=== PATIENT | female | born 1930 | race Caucasian/White ===

== ENCOUNTER 2019-03-07 14:19 | Observation (INO) ==
[2019-03-07] MEDS ORDERED: Naloxone 0.4 MG/ML INJ IVP PRN ×2 (21:40→21:58)
[2019-03-07] MEDS ORDERED: 0.9 % Sodium Chloride 1,000 ML IVC SCH (21:45)
--- NOTE | 2019-03-07 22:54 | Internal Med History&Physical ---
Date of Encounter: 03/07/19 Time of Encounter: 22:27 Internal Medicine - H&P: HPI Chief complaint: Abdominal pain History of present illness: Ms. Esparza is a 88 year old female with a past medical history of insulin- dependent diabetes mellitus, CKD, hypertension, CVA who was initially presented to [facility] on February 25 for evaluation of persistent abdominal pain. CT of the abdomen/pelvis at the time was suspicious for a possible fistula between the sigmoid colon and uterus due to findings of air within the endometrial, endocervical, and endovaginal canals. Patient was subsequently transferred to [facility] for further evaluation which reportedly did not reveal an obvious fistulous tract. She was noted to have fecal impaction treated with enemas and told she m ay need surgical disimpaction. She was subsequently discharged with outpatient follow-up. Patient followed up with her PCP on the . She continued to report of constipation and was subsequently referred to surgery. Due to surgery being unavailable for immediate consultation, patient was subsequently advised to go to the emergency department at [facility]. Initial workup including imaging and labs were unremarkable. Patient was seen by surgery who recommended transfer to [place] for further evaluation with surgery and AGRONOMY LOCATION MANAGER on board. On my assessment patient was afebrile, hemodynamically stable. No reports of abdominal pain. Still reporting absence of a significant bowel movement in some time. She reports that she is passing gas. No reports of unintentional weight loss, melena or hematochezia. Denies any vaginal discharge. Family history noncontributory. Patient does not smoke or consume alcohol. Abdominal exam benign. We will consult AGRONOMY LOCATION MANAGER/surgery for further evaluation. Internal Medicine - H&P: Meds Acetaminophen [Tylenol] 650 mg PO Q6HR PRN 03/08/19 [History] Aspirin Enteric Coated [Aspirin EC] 81 mg PO DAILY 03/08/19 [History] Atenolol [Tenormin] 25 mg PO DAILY 03/08/19 [History] Atorvastatin Calcium [Lipitor] 40 mg PO HS 03/08/19 [History] Calcium Carbonate [Calcium] 600 mg PO DAILY 03/08/19 [History] Cranberry Conc/Ascorbic Acid [Cranberry 12,600 mg Softgel] 2 tab PO BID 03/08/19 [History] Docusate Sodium [Dok] 100 mg PO BID 03/08/19 [History] Ergocalciferol (VITAMIN D2) [Vitamin D] 400 unit PO DAILY 03/08/19 [History] Furosemide [Lasix] 20 mg PO QMWF 03/08/19 [History] Insulin Glargine,Hum.rec.anlog [Lantus Solostar] 55 unit SQ HS 03/08/19 [History] Multivit-Min/Iron Fum/Folic AC [Hgkiy-Nfbyshr-Fgudkacm Tablet] 1 tab PO DAILY 03/08/19 [History] Pantoprazole Sodium [Protonix] 40 mg PO DAILY 03/08/19 [History] Polyethylene Glycol 3350 [MiraLAX] 17 gm PO DAILY 03/08/19 [History] Saxagliptin HCl [Onglyza] 5 mg PO DAILY 03/08/19 [History] hydroCHLOROthiazide [Hydrochlorothiazide] 25 mg PO DAILY 03/08/19 [History] Allergy/AdvReac Type Severity Reaction Status Date / Time No Known Allergies Allergy Verified 03/07/19 23:24 All Systems PM: A 10-system review of systems was performed and is negative for pertinent findings except as documented above in the HPI. - Constitutional Constitutional: no chills, no fever(s), no night sweats - EENT Eyes: no change in vision, no discharge, no pain, no photophobia Ears: no ear discharge, no ear pain, no tinnitus Nose, mouth and throat: no dysphagia, no nasal discharge, no neck pain, no sore throat - Cardiovascular Cardiovascular ROS IM: no chest pain, no diaphoresis, no dyspnea, no lightheadedness, no palpitations, no syncope - Respiratory Respiratory: no cough, no dyspnea, no wheezing, no excessive phlegm production - Gastrointestinal Gastrointestinal: no abdominal pain, no diarrhea, no hematemesis, no hematochezia, no melena, no nausea, no vomiting - Genitourinary Genitourinary: no change in urinary stream, no dysuria, no flank pain, no hematuria - Musculoskeletal Musculoskeletal ROS IM: no numbness, no tingling - Integumentary Integumentary IM: no rash, no unusual bruising - Neurological Neurological ROS: no confusion, no convulsions, no focal weakness, no numbness, no tingling, no tremor(s) - Hematologic/Lymphatic Hematologic/Lymphatic: no easy bruising - Constitutional Vitals: Temp Pulse Resp BP Pulse Ox 98.7 F 56 15 161/69 94 03/07/19 19:28 03/07/19 19:28 03/07/19 19:28 03/07/19 19:28 03/07/19 19:28 Exam: General: Alert and oriented 3 lying in bed in no acute distress Skin:Normal color, no rash, no lesions. HEENT:EOM, pupils equal, round and reactive. Cardiovascular:Normal S1 & S2, no rubs, murmurs or gallops. No JVD. Pulse regular. Lungs:Normal breath sounds, no wheezes or crackles. Abdomen:Soft, mildly distended, non-tender, no rigidity. Hypoactive bowel sounds Extremities:No deformity, no edema or tenderness, no joint swelling or clubbing. Neurological:Normal cognition and motor skills. Pulses:Carotid and radial pulses normal +2. Rest of the physical exam is non contributory Internal Med - H&P Results - Labs CBC & Chem 7: 03/08/19 03:57 03/08/19 03:57 - Assessment and Plan (1) Abdominal pain Current Visit: Yes Status: Acute Assessment and plan: Recent history of persistent Abdominal pain. CT of the abdomen/pelvis 02/25/2019 suspicious for a possible fistula between the sigmoid colon and uterus due to findings of air within the endometrial, endocervical, and endovaginal canals. Workup at [facility] did not reveal an obvious fistulous tract. She was noted to have fecal impaction treated with enemas and stool softeners. Transferred to [place] for further AGRONOMY LOCATION MANAGER and surgical evaluation. Currently denies any abdominal pain but reports persistent absence of normal bowel movement for some time. Abdominal exam benign. Laboratory workup reviewed and unremarkable. -Continue pain control as needed. -Supportive fluids -We will keep patient NPO for now -Consult to surgery/AGRONOMY LOCATION MANAGER Qualifiers: Abdominal location: unspecified location Qualified Code(s): R10.9 - Unspecified abdominal pain (2) Type 2 diabetes mellitus Current Visit: Yes Status: Chronic Assessment and plan: Blood glucose checks. Sliding scale insulin. Qualifiers: Diabetes mellitus longterm insulin use: with longterm use Diabetes mellitus complication status: without complication Qualified Code(s): E11.9 - Type 2 diabetes mellitus without complications; Z79.4 - manager terminal (current) use of insulin (3) Chronic kidney disease Current Visit: Yes Status: Acute Assessment and plan: History of chronic kidney disease. -Patient's creatinine -We will continue to monitor. Qualifiers: Chronic kidney disease stage: unspecified stage Qualified Code(s): N18.9 - Chronic kidney disease, unspecified (4) Hypertension Current Visit: Yes Status: Acute Assessment and plan: Blood pressure stable. Resume home antihypertensives. Qualifiers: Hypertension type: essential hypertension Qualified Code(s): I10 - Essential (primary) hypertension (5) DVT prophylaxis Current Visit: Yes Status: Acute Assessment and plan: Subcutaneous heparin - Time Spent With Patient Total time spent is greater than 50% in coordination of care (as documented) at patient's floor/unit and/or counseling patient:
[2019-03-07] MEDS ORDERED: D5% in Water 1,000 ML IVC PRN (23:09)
[2019-03-07] MEDS ORDERED: *HR* Dextrose 50 % in Water (Syg) 50 ML SYRINGE IVP PRN (23:09)
[2019-03-07] MEDS ORDERED: Dextrose Gel 15 GM/37.5 ML TUBE PO PRN ×2 (23:09)
[2019-03-07] MEDS ORDERED: *HR* Heparin 5,000 UNIT/ML VIAL IVP PRN ×2 (23:36)
[2019-03-07] MEDS ORDERED: Heparin 25,000 UNIT/250 ML D5W 25,000 UNIT/250 ML IV.SOLN IVC SCH (23:45)
[2019-03-08] MEDS: Insulin LISPRO 300 UNITS/3 ML VIAL SQ SCH ×4 (00:09→18:01)
[2019-03-08] MEDS: Ketorolac 15 MG/ML VIAL IVP SCH ×3 (00:20→13:23)
[2019-03-08 04:25] LABS: Basophils # 0.1 K/mcL (0.0-0.2); Basophils % 0.5 %; Eosinophils # 0.1 K/mcL (0.0-0.6); Eosinophils % 1.1 %; Hematocrit 33.7 % (35.3-44.9); Immature Granulocytes % 0.3 % (0-4); Lymphocytes # 2.8 K/mcL (0.6-4.6); Lymphocytes % 22.1 %; Mean Corpuscular HGB Conc 32.6 g/dL (31.6-35.5); Mean Corpuscular Hemoglobin 31.6 pg (28.0-33.3); Mean Corpuscular Volume 96.8 fL (83.0-100.0); Mean Platelet Volume 11.1 fL (9.4-12.4); Monocytes # 1.4 K/mcL (0.0-1.3); Monocytes % 10.9 %; Neutrophils # 8.4 K/mcL (1.6-8.9); Platelet Count 225 K/mcL (140-400); Red Blood Count 3.48 M/mcL (3.82-4.97); Segmented Neutrophils % 65.1 %; White Blood Count 12.8 K/mcL (4.3-11.1)
[2019-03-08 04:29] LABS: INR 1.1; Prothrombin Time 12.1 Seconds (9.4-12.1)
[2019-03-08 04:32] LABS: Activated Partial Thrombo Time 30.9 Seconds (26.0-36.0)
[2019-03-08 04:43] LABS: Albumin 3.2 g/dL (3.5-5.7); Albumin/Globulin Ratio 1.2 (1.1-2.2); Bilirubin,Total 0.7 mg/dL (0.3-1.0); Calcium 9.3 mg/dL (8.6-10.3); Globulin 2.7 g/dL (2.4-3.5); Magnesium 1.7 mg/dL (1.6-2.6); Potassium 3.7 mEq/L (3.5-5.1); Total Protein 5.9 g/dL (6.4-8.9)
[2019-03-08] MEDS: *HR* Heparin 5,000 UNIT/ML VIAL SQ SCH ×3 (06:11→21:51)
--- NOTE | 2019-03-08 08:34 | Internal Med Progress Note ---
<Sukhjinder Clemons - Last Filed: 03/08/19 15:30> Hospitalist Progress Note - Encounter Date of Encounter: 03/08/19 Time of Encounter: 08:34 - Subjective Interval History: Pt reports progressive constipation over the last week. CT imaging from [facility] was suspicious for possible sigmoid-uterine fistula, which was later ruled out at [facility]. Treated at [facility] for fecal impaction with enemas that did not resolve her symptoms. Reports that her last BM was over 3 days ago. Denies having significant pain, although she is uncomfortable due to constipation. She was transfered to [place] for further eval with surgery and PUBLIC SERVICE REPRESENTATIVE. Denies cp, sob, fever, chills. - Exam Vitals: Temp Pulse Resp BP Pulse Ox 98.4 F 66 16 144/68 95 03/08/19 06:25 03/08/19 06:25 03/08/19 06:25 03/08/19 06:25 03/08/19 06:25 Exam: General: Alert and oriented 3 lying in bed in no acute distress Skin: Normal color, no rash, no lesions. HEENT: EOMI, pupils equal, round and reactive. Cardiovascular: Normal S1 & S2, no rubs, murmurs or gallops. No JVD. Pulse regul ar. Lungs: Normal breath sounds, no wheezes or crackles. Abdomen:Soft, mild distention, non-tender, no rigidity, no evidence of acute abdomen. normoactive bowel sounds Extremities: No deformity, no edema or tenderness, no joint swelling or clubbing. Neurological: Some mild weakness of the right wrist and arm with wrist pain. Pt states that she has hx of arthritis. No focal deficits, CN grossly intact. - Assessment and Plan (1) Fecal impaction Current Visit: Yes Status: Acute Assessment and Plan: Pt was seen and treated at [facility] for fecal impaction. Enemas and disempaction have not improved symptoms. Pt reporting now BM for more than 3 days. Surgery consulted. - Plan is colonoscopy prep today with plans for colonoscopy tomorrow per surgery recommendations. - Maintain hydration, IVF if necessary. - Monitor electrolytes. (2) Type 2 diabetes mellitus Current Visit: Yes Status: Chronic Assessment and Plan: Pt has hx of uncontrolled IDDM. She reports no symptoms at this time. - Continue Humalog sliding scale. - Monitor for hypoglycemia. - Continue clear liquid diet. (3) Chronic kidney disease Current Visit: Yes Status: Acute Assessment and Plan: Pt has a hx of CKD. BUN 24, Cr 1.12 at admission. Pt reports mild discomfort from constipation, but is comfortable and not in pain. We will decrease her Toradol Q6 to PRN and continue to monitor. - Maintain hydration. - Avoid nephrotoxic drugs. - Monitor renal function daily. (4) Hypertension Current Visit: Yes Status: Acute Assessment and Plan: BP is slightly elevated today. 144-161/68 over the last two hours. - Continue home bp medications. (5) DVT prophylaxis Current Visit: Yes Status: Acute Assessment and Plan: Heparin SQ for DVT ppx. - Time Spent with Patient Total time spent is greater than 50% in coordination of care (as documented) at patient's floor/unit and/or counseling patient: Internal Medicine: Result - Labs CBC & Chem 7: 03/08/19 03:57 03/08/19 03:57 Labs: Short CBC 03/08/19 Range/Units 03:57 WBC 12.8 H (4.3-11.1) K/mcL Hgb 11.0 L (11.5-15.4) g/dL Hct 33.7 L (35.3-44.9) % Plt Count 225 (140-400) K/mcL Neutrophils # 8.4 (1.6-8.9) K/mcL BMP 03/08/19 03:57 Sodium 143 Potassium 3.7 Chloride 105 Carbon Dioxide 28 BUN 24 H Creatinine 1.12 Glucose 92 Calcium 9.3 Liver Function 03/08/19 Range/Units 03:57 Total Bilirubin 0.7 (0.3-1.0) mg/dL AST 16 (13-39) Units/L ALT 10 (7-52) Units/L Alkaline Phosphatase 56 (34-104) Units/L Albumin 3.2 L (3.5-5.7) g/dL - ABG Interpretation ABG results: PT/INR, D-dimer PT 12.1 Seconds (9.4-12.1) 03/08/19 03:57 Consult Discharge Plan - Plan Referrals: Candice Black MD [Primary Care Provider] - <Pepito Mccabe - Last Filed: 03/08/19 17:41> Hospitalist Progress Note - Encounter Date of Encounter: 03/08/19 - Exam Vitals: Temp Pulse Resp BP Pulse Ox 98.1 F 54 17 158/73 97 03/08/19 14:56 03/08/19 14:56 03/08/19 14:56 03/08/19 14:56 03/08/19 14:56 - Assessment and Plan (1) Abdominal pain Current Visit: Yes Status: Acute (2) DVT prophylaxis Current Visit: Yes Status: Acute (3) Type 2 diabetes mellitus Current Visit: Yes Status: Chronic (4) Chronic kidney disease Current Visit: Yes Status: Acute (5) Hypertension Current Visit: Yes Status: Acute - Time Spent with Patient Total time spent is greater than 50% in coordination of care (as documented) at patient's floor/unit and/or counseling patient: Internal Medicine: Result - Labs CBC & Chem 7: 03/08/19 03:57 03/08/19 03:57 Labs: Short CBC 03/08/19 Range/Units 03:57 WBC 12.8 H (4.3-11.1) K/mcL Hgb 11.0 L (11.5-15.4) g/dL Hct 33.7 L (35.3-44.9) % Plt Count 225 (140-400) K/mcL Neutrophils # 8.4 (1.6-8.9) K/mcL BMP 03/08/19 03:57 Sodium 143 Potassium 3.7 Chloride 105 Carbon Dioxide 28 BUN 24 H Creatinine 1.12 Glucose 92 Calcium 9.3 Liver Function 03/08/19 Range/Units 03:57 Total Bilirubin 0.7 (0.3-1.0) mg/dL AST 16 (13-39) Units/L ALT 10 (7-52) Units/L Alkaline Phosphatase 56 (34-104) Units/L Albumin 3.2 L (3.5-5.7) g/dL - ABG Interpretation ABG results: PT/INR, D-dimer PT 12.1 Seconds (9.4-12.1) 03/08/19 03:57 - Impressions Impressions Head CT 03/08/19 11:57 IMPRESSION: No acute intracranial abnormality. Senescent changes. 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 D/ / Robert Leblanc / Robert Leblanc Interpreting Provider: Robert Leblanc - Attending Attestation I examined this patient and my medical decision-making was reviewed with the Resident Physician on 03/08/19. I agree with the documented findings, disposition and treatment plan as described except to the extent set forth below. Ms Esparza is currently hospitalized for abdominal pain. She remains moderate to high risk due to potential for worsening clinical status. Ms Esparza is resting at this time. No fever or chills. To have colonoscopy tomorrow. Exam Alert. Comfortable. Mucus membranes dry. NC. EOMI. Neck supple. Heart reg No wheeze Abd soft and nontender. No edema. Moves all extremities. No rash. I/P 1. Abd pain 2. Constipation Colonoscopy tomorrow. __ <Sukhjinder Clemons - Last Filed: 03/08/19 15:30> (2) Type 2 diabetes mellitus Qualifiers: Diabetes mellitus custodial insulin use: with joint terminal attack controller use Diabetes mellitus complication status: without complication Qualified Code(s): E11.9 - Type 2 diabetes mellitus without complications; Z79.4 - senior living (current) use of in sulin (4) Hypertension Qualifiers: Hypertension type: essential hypertension Qualified Code(s): I10 - Essential (primary) hypertension <Pepito Mccabe - Last Filed: 03/08/19 17:41> (3) Type 2 diabetes mellitus Qualifiers: Diabetes mellitus custodial insulin use: with custodial use Diabetes mellitus complication status: without complication Qualified Code(s): E11.9 - Type 2 diabetes mellitus without complications; Z79.4 - senior living (current) use of insulin (5) Hypertension Qualifiers: Hypertension type: essential hypertension Qualified Code(s): I10 - Essential (primary) hypertension
--- NOTE | 2019-03-08 10:10 | AcuteCare Surgery Consult Note ---
Date of Encounter: 03/08/19 Time of Encounter: 10:00 Assessment and Plan (1) Rectovaginal fistula Current Visit: Yes Status: Acute Possible. Recommend evaluation with colonoscopy. Indications for colonoscopy are discussed in detail. Procedure, risk and benefits of colonscopy are discussed. Pt understands risks and possible complications. Possible complications include but, are not limited to bleeding, infection or perforation. Pt understands and wishes to proceed as recommended. Consent is obtained. Inpatient colonoscopy is scheduled. Prep today and scope tomorrow. (2) Hypertension Current Visit: Yes Status: Acute Qualifiers: Hypertension type: essential hypertension Qualified Code(s): I10 - [facility]ia l (primary) hypertension (3) Type 2 diabetes mellitus Current Visit: Yes Status: Chronic Qualifiers: Diabetes mellitus custodial insulin use: with custodial use Diabetes mellitus complication status: without complication Qualified Code(s): E11.9 - Type 2 diabetes mellitus without complications; Z79.4 - penitentiary (current) use of insulin History of Present Illness Consult date: 03/08/19 Reason for consult: other (abnormal abdomen/pelvis CT finding c/w rectovaginal fistula) Requesting physician: Armaan Hardwick History of present illness: This 88 y/io female presents with concerning findings on CT. She is found to have air in uterus and vaginal canal. She complains of chonic constipation stating that she hasn't has a good BM in a long while. She denies vaginal discharge or gas. She denies abdominal pain. She denies rectal bleeding. She denies urinaary symptoms. She denies fever. Past Med Surg Social Fam HX - Past Medical History Medical history: arthritis, CVA, diabetes, hypertension, valvular heart disease - Past Surgical History Surgical History: appendectomy, cholecystectomy, thyroidectomy - Social History Smoking Status: Never smoker Smokeless Tobacco Status: No Alcohol use: none Drug use: none Medications and Allergies Acetaminophen [Tylenol] 650 mg PO Q6HR PRN 03/08/19 [History] Aspirin Enteric Coated [Aspirin EC] 81 mg PO DAILY 03/08/19 [History] Atenolol [Tenormin] 25 mg PO DAILY 03/08/19 [History] Atorvastatin Calcium [Lipitor] 80 mg PO HS 03/08/19 [History] Calcium Carbonate [Calcium] 600 mg PO DAILY 03/08/19 [History] Cranberry Conc/Ascorbic Acid [Cranberry 12,600 mg Softgel] 2 tab PO BID 03/08/19 [History] Docusate Sodium [Dok] 100 mg PO BID 03/08/19 [History] Ergocalciferol (VITAMIN D2) [Vitamin D] 400 unit PO DAILY 03/08/19 [History] Furosemide [Lasix] 20 mg PO QMWF 03/08/19 [History] Lantus Solostar 55 unit SQ HS 03/08/19 [History] Multivit-Min/Iron Fum/Folic AC [Hssga-Xdceyhc-Pjyoigts Tablet] 1 tab PO DAILY 03/08/19 [History] Pantoprazole Sodium [Protonix] 40 mg PO DAILY 03/08/19 [History] Polyethylene Glycol 3350 [MiraLAX] 17 gm PO DAILY 03/08/19 [History] Saxagliptin HCl [Onglyza] 5 mg PO DAILY 03/08/19 [History] hydroCHLOROthiazide [Hydrochlorothiazide] 25 mg PO DAILY 03/08/19 [History] Allergy/AdvReac Type Severity Reaction Status Date / Time No Known Allergies Allergy Verified 03/07/19 23:24 Review of Systems All systems PM: The remainder of the systems were reviewed and are negative - Constitutional no anorexia, no chills, no fatigue, no fever(s), no night sweats, no weight loss - EENT Nose, mouth and throat: no dry mouth, no dysphagia, no nasal congestion, no nasal discharge, no sinus pain, no sinus pressure, no sore throat - Cardiovascular no chest pain, no diaphoresis, no dyspnea, no edema - Respiratory no cough, no dyspnea, no wheezing - Gastrointestinal constipation, no abdominal pain, no bloating, no diarrhea, no hematemesis, no hematochezia, no melena, no nausea, no vomiting - Genitourinary Genitourinary: no dysuria, no flank pain, no urinary frequency - Musculoskeletal no back pain, no joint swelling, no limited range of motion, no neck pain - Integumentary no dry skin, no pruritus, no rash, no wounds, no jaundice - Neurological no confusion, no dizziness, no focal weakness, no headache(s), no weakness - Psychiatric no anxiety, no depression - Endocrine no fatigue - Hematologic/Lymphatic no easy bleeding, no easy bruising General Surgery Exam Initial Vital Signs Temp Pulse Resp BP Pulse Ox 98.7 F 56 15 161/69 94 03/07/19 19:28 03/07/19 19:28 03/07/19 19:28 03/07/19 19:28 03/07/19 19:28 - General physical appearance no distress, no pain. negative: jaundice - Eyes PERRL, normal ocular movement. negative: icteric - ENT no congestion, dry mucosa. negative: nasal discharge - Neck no masses, trachea midline, no lymphadectomy, no venous distension - Respiratory normal respiratory effort, clear to auscultation - Cardiovascular Cardiovascular exam: Present: RRR. Absent: JVD - Abdomen Abdomen general surgery: Present: bowel sounds present, soft, non tender. Absen t: distended, guarding, rebound - Genitourinary Present: normal external genitalia - Rectum Rectum: Present: normal sphincter tone, no bleeding - Integumentary Integumentary general surgery: Present: warm and dry - Neurologic Present: CN 2-12 grossly intact, normal coordination - Musculoskeletal Present: normal posture - Psychiatric Psychiatric general surgery: Present: A&Ox3, appropriate Exam Initial Vital Signs Temp Pulse Resp BP Pulse Ox 98.7 F 56 15 161/69 94 03/07/19 19:28 03/07/19 19:28 03/07/19 19:28 03/07/19 19:28 03/07/19 19:28 Results - Labs 03/08/19 03:57 03/08/19 03:57 Abnormal lab results WBC 12.8 K/mcL (4.3-11.1) H 03/08/19 03:57 RBC 3.48 M/mcL (3.82-4.97) L 03/08/19 03:57 Hgb 11.0 g/dL (11.5-15.4) L 03/08/19 03:57 Hct 33.7 % (35.3-44.9) L 03/08/19 03:57 Monocytes # 1.4 K/mcL (0.0-1.3) H 03/08/19 03:57 BUN 24 mg/dL (8-23) H 03/08/19 03:57 Est GFR ( Amer) 56 (> 60) L 03/08/19 03:57 Est GFR (Non-Af Amer) 46 (> 60) L 03/08/19 03:57 POC Glucose 103 mg/dL (70-99) H 03/07/19 21:27 Serum Total Protein 5.9 g/dL (6.4-8.9) L 03/08/19 03:57 Albumin 3.2 g/dL (3.5-5.7) L 03/08/19 03:57 Diabetes panel 03/08/19 Range/Units 03:57 Sodium 143 (136-145) mEq/L Potassium 3.7 (3.5-5.1) mEq/L Chloride 105 (98-107) mEq/L Carbon Dioxide 28 (23-29) mEq/L BUN 24 H (8-23) mg/dL Creatinine 1.12 (0.60-1.20) mg/dL Glucose 92 (70-105) mg/dL Calcium 9.3 (8.6-10.3) mg/dL AST 16 (13-39) Units/L ALT 10 (7-52) Units/L Alkaline Phosphatase 56 (34-104) Units/L Albumin 3.2 L (3.5-5.7) g/dL Calcium panel 03/08/19 Range/Units 03:57 Calcium 9.3 (8.6-10.3) mg/dL Albumin 3.2 L (3.5-5.7) g/dL Pituitary panel 03/08/19 Range/Units 03:57 Sodium 143 (136-145) mEq/L Potassium 3.7 (3.5-5.1) mEq/L Chloride 105 (98-107) mEq/L Carbon Dioxide 28 (23-29) mEq/L BUN 24 H (8-23) mg/dL Creatinine 1.12 (0.60-1.20) mg/dL Glucose 92 (70-105) mg/dL Calcium 9.3 (8.6-10.3) mg/dL Adrenal panel 03/08/19 Range/Units 03:57 Sodium 143 (136-145) mEq/L Potassium 3.7 (3.5-5.1) mEq/L Chloride 105 (98-107) mEq/L Carbon Dioxide 28 (23-29) mEq/L BUN 24 H (8-23) mg/dL Creatinine 1.12 (0.60-1.20) mg/dL Glucose 92 (70-105) mg/dL Calcium 9.3 (8.6-10.3) mg/dL Total Bilirubin 0.7 (0.3-1.0) mg/dL AST 16 (13-39) Units/L ALT 10 (7-52) Units/L Alkaline Phosphatase 56 (34-104) Units/L Albumin 3.2 L (3.5-5.7) g/dL All other labs normal. - Imaging CT scan - abdomen: report reviewed (air in uterus and vaginal canal suggestive of rectovaginal fistula) CT scan - pelvis: report reviewed Consult Discharge Plan - Plan Referrals: Candice Black MD [Primary Care Provider] -
[2019-03-08] MEDS ORDERED: Acetaminophen 325 MG TABLET PO PRN (13:54)
[2019-03-08] MEDS ORDERED: Ketorolac 15 MG/ML VIAL IVP PRN (15:30)
[2019-03-08] MEDS: hydroCHLOROthiazide 25 MG TABLET PO SCH (16:18)
[2019-03-09] MEDS: Insulin LISPRO 300 UNITS/3 ML VIAL SQ SCH ×3 (00:09→12:00)
[2019-03-09] MEDS: *HR* Heparin 5,000 UNIT/ML VIAL SQ SCH ×2 (04:27→16:39)
--- NOTE | 2019-03-09 07:40 | Internal Med Progress Note ---
<KaciSukhjinder Ayden - Last Filed: 03/09/19 12:10> Hospitalist Progress Note - Encounter Date of Encounter: 03/09/19 Time of Encounter: 07:39 - Subjective Interval History: Pt awake, comfortable in bed. States that she has no pain. Reports large BM yesterday after bowel prep for colonoscopy. We discussed colonoscopy procedure this morning. Pt had no questions or concerns at this time. - Exam Vitals: Temp Pulse Resp BP Pulse Ox 98.4 F 67 14 146/70 94 03/09/19 03:02 03/09/19 03:02 03/09/19 03:02 03/09/19 03:02 03/09/19 03:02 Exam: General: Alert and oriented 3 lying in bed in no acute distress Skin: Normal color, no rash, no lesions. HEENT: EOMI, PERRL. Cardiovascular: Normal S1 & S2, no rubs, murmurs or gallops. No JVD. Lungs: Normal breath sounds, no wheezes or crackles. Abdomen: Soft, mildly distended, non-tender, no rigidity. BS normoactive throughout. Extremities: No deformity, edema or tenderness, no joint swelling or clubbing. Neurological: No focal deficits, CN grossly intact. Pulses: UE/LE pulses +2 and equal bilaterally. 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 Bowel prep for colonoscopy was performed yesterday. Pt reported BM and improvement in symptoms. - Colonoscopy today. - Maintain hydration, IVF if necessary. - Monitor electrolytes. (2) Type 2 diabetes mellitus Current Visit: Yes Status: Chronic Assessment and Plan: Hx of uncontrolled IDDM. Asymptomatic. BS elevated from 103 to 245 today. - Continue humalog sliding scale. - Accucheck Q6H. - NPO until colonoscopy. (3) Chronic kidney disease Current Visit: Yes Status: Acute Assessment and Plan: BUN down from 24 to 19, Cr down from 1.12 to 0.94 today. Potassium 3.6, asymptomatic. Urinating appropriately. - 20 meq KCl once given. - NPO until colonoscopy. - Avoid nephrotoxic drugs. - Monitor renal function daily. (4) Hypertension Current Visit: Yes Status: Acute Assessment and Plan: BP improving. 154/73 today. Pt is stable, asymptomatic. - Continue home HCTZ and Atenolol. (5) DVT prophylaxis Current Visit: Yes Status: Acute Assessment and Plan: SQ heparin. - Time Spent with Patient Total time spent is greater than 50% in coordination of care (as documented) at patient's floor/unit and/or counseling patient: Internal Medicine: Result - Labs CBC & Chem 7: 03/09/19 09:27 03/09/19 09:27 - ABG Interpretation ABG results: PT/INR, D-dimer PT 12.1 Seconds (9.4-12.1) 03/08/19 03:57 - Impressions Impressions Head CT 03/08/19 11:57 IMPRESSION: No acute intracranial abnormality. Senescent changes. 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 D/ / Robert Leblanc / Robert Leblanc Interpreting Provider: Robert Leblanc Consult Discharge Plan - Plan Instructions: Diverticulosis (DC) Referrals: Candice Black MD [Primary Care Provider] - <Pepito Mccabe - Last Filed: 03/09/19 17:44> Hospitalist Progress Note - Encounter Date of Encounter: 03/09/19 - Exam Vitals: Temp Pulse Resp BP Pulse Ox 98.9 F 59 15 138/70 94 03/09/19 14:49 03/09/19 14:49 03/09/19 14:49 03/09/19 14:49 03/09/19 14:49 - Assessment and Plan (1) Fecal impaction Current Visit: Yes Status: Acute (2) Abdominal pain Current Visit: Yes Status: Acute (3) Type 2 diabetes mellitus Current Visit: Yes Status: Chronic (4) Hypertension Current Visit: Yes Status: Chronic - Time Spent with Patient Total time spent is greater than 50% in coordination of care (as documented) at patient's floor/unit and/or counseling patient: Internal Medicine: Result - Labs CBC & Chem 7: 03/09/19 09:27 03/09/19 09:27 Labs: Short CBC 03/09/19 Range/Units 09:27 WBC 11.1 (4.3-11.1) K/mcL Hgb 11.3 L (11.5-15.4) g/dL Hct 34.0 L (35.3-44.9) % Plt Count 225 (140-400) K/mcL Neutrophils # 7.3 (1.6-8.9) K/mcL BMP 03/09/19 09:27 Sodium 141 Potassium 3.6 Chloride 104 Carbon Dioxide 26 BUN 19 Creatinine 0.94 Glucose 158 H Calcium 9.0 - ABG Interpretation ABG results: PT/INR, D-dimer PT 12.1 Seconds (9.4-12.1) 03/08/19 03:57 - Attending Attestation See discharge summary of this date. <Sukhjinder Clemons - Last Filed: 03/09/19 12:10> (2) Type 2 diabetes mellitus Qualifiers: Diabetes mellitus snf insulin use: with director call center sales use Diabetes mellitus complication status: without complication Qualified Code(s): E11.9 - Type 2 diabetes mellitus without complications; Z79.4 - penitentiary (current) use of insulin (3) Chronic kidney disease Qualifiers: Chronic kidney disease stage: unspecified stage Qualified Code(s): N18.9 - Chronic kidney disease, unspecified (4) Hypertension Qualifiers: Hypertension type: essential hypertension Qualified Code(s): I10 - Essential (primary) hypertension <Pepito Mccabe - Last Filed: 03/09/19 17:44> (2) Abdominal pain Qualifiers: Abdominal location: left lower quadrant Qualified Code(s): R10.32 - Left lower quadrant pain (3) Type 2 diabetes mellitus Qualifiers: Diabetes mellitus director call center sales insulin use: with director call center sales use Diabetes mellitus complication status: without complication Qualified Code(s): E11.9 - Type 2 di abetes mellitus without complications; Z79.4 - penitentiary (current) use of insulin (4) Hypertension Qualifiers: Hypertension type: essential hypertension Qualified Code(s): I10 - Essential (primary) hypertension
[2019-03-09] MEDS ORDERED: Aspirin Enteric Coated 81 MG Tablet PO SCH (09:00)
[2019-03-09 09:40] LABS: Basophils # 0.1 K/mcL (0.0-0.2); Basophils % 0.5 %; Eosinophils # 0.1 K/mcL (0.0-0.6); Eosinophils % 0.9 %; Hemoglobin 11.3 g/dL (11.5-15.4); Immature Granulocytes % 0.3 % (0-4); Lymphocytes # 2.5 K/mcL (0.6-4.6); Lymphocytes % 22.3 %; Mean Corpuscular HGB Conc 33.2 g/dL (31.6-35.5); Mean Corpuscular Hemoglobin 31.5 pg (28.0-33.3); Mean Corpuscular Volume 94.7 fL (83.0-100.0); Mean Platelet Volume 10.9 fL (9.4-12.4); Monocytes # 1.1 K/mcL (0.0-1.3); Monocytes % 9.8 %; Neutrophils # 7.3 K/mcL (1.6-8.9); Platelet Count 225 K/mcL (140-400); Red Blood Count 3.59 M/mcL (3.82-4.97); Red Cell Distribution Width 11.9 % (11.5-14.5); Segmented Neutrophils % 66.2 %; White Blood Count 11.1 K/mcL (4.3-11.1)
[2019-03-09] MEDS: hydroCHLOROthiazide 25 MG TABLET PO SCH (09:45)
[2019-03-09 10:03] LABS: BUN/Creatinine Ratio 20 (6-26); Blood Urea Nitrogen 19 mg/dL (8-23); Carbon Dioxide 26 mEq/L (23-29); Chloride 104 mEq/L (98-107); Glucose 158 mg/dL (70-105); Osmolality,Calculated 298 (280-300); Potassium 3.6 mEq/L (3.5-5.1); Sodium 141 mEq/L (136-145); eGFR For African Americans > 60 (> 60); eGFR For Non-African Americans 56 (> 60)
[2019-03-09] MEDS ORDERED: *HR* FentaNYL (PF) 100 MCG/2 ML VIAL IVP ONE (10:57)
[2019-03-09] MEDS ORDERED: *HR* Midazolam HCl 5 MG/5 ML VIAL IVP ONE ×2 (10:57→12:35)
--- NOTE | 2019-03-09 10:57 | Pre-Sedation Evaluation ---
Pre-sedation evaluation - Pre-sedation checklist Date of procedure: 03/09/19 Procedure: Colonoscopy Recent Vitals: Last Vital Signs Temp 98.8 F 03/09/19 08:03 Pulse 67 03/09/19 08:03 Resp 15 03/09/19 08:03 BP 154/73 03/09/19 08:03 Pulse Ox 95 03/09/19 08:03 H&P (including ROS) documented in medical record: Yes Previous reaction to sedatives/anesthetics: No Dietary Status: NPO after Midnight Dentition: No loose teeth or bridges Possible difficult airway: No ASA Classification *see protocol: CLASS II-Mild systemic disease Plan of Care: Pt appropriate candidate for procedure/moderate/conscious sedation Cardiac Registry (Cardio Only) - Functional Capacity Functional Capacity: >=4 METS without symptoms
[2019-03-09] MEDS ORDERED: Potassium Chloride Elixir 20 MEQ/15 ML UDC PO ONE (11:59)
[2019-03-09] MEDS ORDERED: *HR* FentaNYL (PF) 100 MCG/2 ML VIAL ONE (12:35)
--- NOTE | 2019-03-09 14:29 | Acute Care Surgery Event Note ---
Date of Encounter: 03/09/19 Time of Encounter: 14:00 Pt underwent colonoscopy today for abnormal uterus/vaginal canal on CT. Pt denies any symptoms other than constipation. Colonoscopy reveals normal colon with noncomplicated divertiulosis. There is no sign of acute or chronic inflammation, there is no sign of malignancy, there is no sign of fistula. No surgery is recommended at this time. Regular diet. DC to home when OK with hospitalist. Surgery signing off.
[2019-03-09 14:59] VITALS: BP 138/70
--- NOTE | 2019-03-09 15:07 | Discharge Summary ---
- NOTES TO OUTPATIENT PROVIDER Notes to Outpatient Provider: Pt sent to [facility] due to concern for rectovaginal fistula and constipation with abdominal pain. Had colonoscopy which was negative. To follow as outpatient. Orders not resulted at time of discharge: Pending orders 03/07/19 21:40 Urinalysis reflex Microscopic [URIN] Stat Date of Encounter: 03/09/19 Time of Encounter: 14:45 - Discharge Diagnosis (1) Fecal impaction Priority: Primary Status: Acute (2) Abdominal pain Priority: Secondary Status: Acute Qualifiers: Abdominal location: left lower quadrant Qualified Code(s): R10.32 - Left lower quadrant pain (3) Type 2 diabetes mellitus Priority: Secondary Status: Chronic Qualifiers: Diabetes mellitus buttermaker continuous churn insulin use: with buttermaker continuous churn use Diabetes mellitus complication status: without complication Qualified Code(s): E11.9 - Type 2 diabetes mellitus without complications; Z79.4 - petroleum terminal plant operator (current) use of insulin (4) Hypertension Priority: Secondary Status: Chronic Qualifiers: Hypertension type: essential hypertension Qualified Code(s): I10 - Essential (primary) hypertension Hospital course: Ms. Esparza is a 88 year old female presented to ED with complaints of abdominal pain and constipation. Due to concern for fistula she was sent to [facility]. Ms Esparza was placed in observation. She had evaluation by surgery and underwent colonoscopy. No sign of fistula noted. She had improvement in her symptoms and was afebrile. She is to be discharged home with outpatient follow up. - Time Spent with Patient Total time spent providing and/or coordinating discharge services: 28min - Discharge Medications Prescriptions: Continued Acetaminophen [Tylenol] 650 mg PO Q6HR PRN PRN Reason: Pain Polyethylene Glycol 3350 [MiraLAX] 17 gm PO DAILY Pantoprazole Sodium [Protonix] 40 mg PO DAILY Saxagliptin HCl [Onglyza] 5 mg PO DAILY Multivit-Min/Iron Fum/Folic AC [Tbvws-Hxprslo-Uxspteey Tablet] 1 tab PO DAILY Insulin Glargine,Hum.rec.anlog [Lantus Solostar] 55 unit SQ HS hydroCHLOROthiazide [Hydrochlorothiazide] 25 mg PO DAILY Furosemide [Lasix] 20 mg PO QMWF Docusate Sodium [Dok] 100 mg PO BID Cranberry Conc/Ascorbic Acid [Cranberry 12,600 mg Softgel] 2 tab PO BID Ergocalciferol (VITAMIN D2) [Vitamin D] 400 unit PO DAILY Calcium Carbonate [Calcium] 600 mg PO DAILY Atorvastatin Calcium [Lipitor] 40 mg PO HS Atenolol [Tenormin] 25 mg PO DAILY Aspirin Enteric Coated [Aspirin EC] 81 mg PO DAILY Home Medications: Acetaminophen [Tylenol] 650 mg PO Q6HR PRN 03/08/19 [History] Aspirin Enteric Coated [Aspirin EC] 81 mg PO DAILY 03/08/19 [History] Atenolol [Tenormin] 25 mg PO DAILY 03/08/19 [History] Atorvastatin Calcium [Lipitor] 40 mg PO HS 03/08/19 [History] Calcium Carbonate [Calcium] 600 mg PO DAILY 03/08/19 [History] Cranberry Conc/Ascorbic Acid [Cranberry 12,600 mg Softgel] 2 tab PO BID 03/08/19 [History] Docusate Sodium [Dok] 100 mg PO BID 03/08/19 [History] Ergocalciferol (VITAMIN D2) [Vitamin D] 400 unit PO DAILY 03/08/19 [History] Furosemide [Lasix] 20 mg PO QMWF 03/08/19 [History] Insulin Glargine,Hum.rec.anlog [Lantus Solostar] 55 unit SQ HS 03/08/19 [History] Multivit-Min/Iron Fum/Folic AC [Kzyve-Yshdteg-Brvsedhj Tablet] 1 tab PO DAILY 0 03/08/19 [History] Pantoprazole Sodium [Protonix] 40 mg PO DAILY 03/08/19 [History] Polyethylene Glycol 3350 [MiraLAX] 17 gm PO DAILY 03/08/19 [History] Saxagliptin HCl [Onglyza] 5 mg PO DAILY 03/08/19 [History] hydroCHLOROthiazide [Hydrochlorothiazide] 25 mg PO DAILY 03/08/19 [History] Allergies/Adverse Reactions: Allergy/AdvReac Type Severity Reaction Status Date / Time No Known Allergies Allergy Verified 03/07/19 23:24 Date of admission: 03/07/19 17:41 Primary care physician: Candice Black MD Consults: 03/07/19 21:44 Consult to Surgery [CONS] Routine Consulting Provider: Surgery [facility] Reason for Consult: Evaluation for possible colovaginal fistula Call Completed: Yes 03/07/19 21:45 Consult to GROUP PRESIDENT [CONS] Routine Consulting Provider: SECOND FLOOR OPERATOR [facility] Reason for Consult: Concern for colovaginal fistula Call Completed: No Discharging clinician: Pepito Mccabe Anticipated date of discharge: 03/09/19 - Constitutional Vitals: Temp Pulse Resp BP Pulse Ox 98.9 F 59 15 138/70 94 03/09/19 14:49 03/09/19 14:49 03/09/19 14:49 03/09/19 14:49 03/09/19 14:49 General appearance: Present: A&O X 3, answers questions appropriately Exam: See below - Head Head exam: Present: normocephalic - Eye Eye exam: Present: EOMI, conjuntiva pink - ENT ENT exam: Present: mucous membranes moist - Neck Neck exam general surgery: Present: normal inspection, supple - Respiratory Respiratory exam: Present: CTAB. Absent: rhonchi, wheezes - Cardiovascular Cardiovascular exam: Present: RRR. Absent: tachycardia - GI/Abdominal GI/Abdominal exam: Present: soft. Absent: tenderness - Extremities Exam Extremities exam: Present: warm. Absent: tenderness - Neurological Exam Neurological exam: Present: alert, oriented X3 - Skin Skin exam: Present: dry, warm - Patient Status Disposition: Home, Self-Care Condition: Good Functional capacity at discharge: uses cane/walker Overall status at discharge: patient is progressing back to baseline - Discharge Instructions Instructions: Diverticulosis (DC) Follow Up With: Candice Black MD [Primary Care Provider] - - Diet and Activity Activity: resume usual activities as tolerated Diet: advance to your usual diet
== END 2019-03-09 20:00 | disposition home or self-care (01) ==
LOC: 3ANU → SUATTDRO 17:41
PROVIDERS: ADMIT Internal Medicine; ATTEND Internal Medicine